=== PATIENT | female | born 1970 | race Caucasian/White ===

== ENCOUNTER 2019-03-13 11:08 | Inpatient (IN) | payer OTHER, SELFPAY ==
[2019-03-11 07:55] VITALS: BMI 36.1
[2019-03-13] VITALS (18 sets, daily range): BP systolic 82–118; BP diastolic 50–76; PULSE 55–96; RESP 12–18; TEMP 35.6–36.4; O2SAT 90–100; BMI 35.5
--- NOTE | 2019-03-13 | DI.RAD.S_ITS ---
PROCEDURE: XR LUMBAR SPINE 2-3V INDICATIONS: L5-S1 TLIF TECHNIQUE: 2 views of the lumbar spine were acquired. COMPARISON: None. FINDINGS: Spot fluoroscopic intraoperative views demonstrating L4-L5 posterior spinal fixation and interbody cage graft. Dictated by: Fausto Haile M.D. on 03/13/2019 at 15:15 Approved by: Fausto Haile M.D. on 03/13/2019 at 15:17
--- NOTE | 2019-03-13 11:34 | PM.PREOP ---
Pre-operative Note Interval Note History & Physical reviewed/Exam performed by Physician: Yes Changes to H&P: No
[2019-03-13] MEDS: LACTATED RINGERS 1,000 ML 42 ML IV ×2 (11:40→13:12)
[2019-03-13] MEDS: CEFAZOLIN 2 GM/100 ML FROZ.PIGGY IV ×2 (12:08→19:03)
--- NOTE | 2019-03-13 12:41 | SUR.OPER ---
Prone on spine table, head in foam head support, padded chest and pelvic supports, gel pad at knees, lower legs supported by pillows; nipples, genitalia and toes free of pressure, arms secured on foam padded arm boards at <90 degrees abduction. Tape over blanket at thigh secured to table.
[2019-03-13] MEDS: BUPIVACAINE 0.25% W/ EPI 30 ML VIAL INJ (12:52)
[2019-03-13] MEDS: BUPIVACAINE LIPOSOME 266 MG/20 ML VIAL INJ (12:53)
[2019-03-13] MEDS: LORazepam 2 MG/ML INJ 0.25 MG IV ×2 (13:15→15:41)
--- NOTE | 2019-03-13 14:53 | PM.OP.1 ---
Operative Date/Time/Diagnoses Date of procedure: 03/13/19 Time of procedure: 12:16 Pre-op diagnosis: 1. L5-S1 spinal stenosis 2. L5-S1 spondylosis with radiculopathy Post-op diagnosis: same Procedure & Clinicians Procedure: 1. L5-S1 Postero-lateral and posterior interbody fusion 2. L5-S1 interbody cage placement. 3. L5-S1 decompressive laminectomy with bilateral facetecomies 4. L5-S1 Posterior non-segmental instrumentation 5. [place] of bone marrow from iliac crest 6. Utilization of microsurgical technique and operating microscope Same procedure as scheduled: Yes Indications: Patient has been having chronic back pain and worsening lumbar radiculopathy. Patient failed multiple conservative management with worsening pain weakness and numbness in her lower extremity. Patient has been having difficulty performing activity of daily living. After discussing risks benefits of treatment options, patient elected proceed with surgery. Surgeon: Katt Hatch Manager Marketing Sales: Alona Pope Click Yes if Unassisted: No Anesthesia Type: General Operative Notes Closure Type: primary Specimen(s): none sent Prosthetic devices, grafts, tissues, transplants, or devices: Globus revolve screws, Rise cage Estimated Blood Loss (mL): 100 Blood products transfused: none Procedure in detail: Patient was seen in the preoperative area. Risks and benefits of the surgery was discussed with the patient. Informed consent was obtained from the patient and placed in the chart. Surgical site was marked. Patient was taken to the operative room. General anesthesia was administered. Prophylactic antibiotic was given to the patient less than 30 min before the incision was made. Patient was placed into a prone position on the Raza table. Patient's back was then prepped and draped in the sterile fashion. Time-out was performed at this time. Using AP and lateral C-arm imaging the interval between L5-S1 was identified and marked on patient's back. A 2 inch incision 2 in from midline was made on the left side first. The fascia was incised in line with skin incision. Globus MARS retractors was placed inside the incision and docked onto the L5 lamina. Using microsurgical technique and operating microscope, a L5 laminectomy and L5-S1 facetectomy was performed using a Kerrison rongeur. The patient was found have severe central and neural foramen stenosis which required total facetectomy and rendered L5-S1 level grossly unstable requiring fusion procedure at the same time. The disc space at L5-S1 was identified. And a total diskectomy was performed at L5-S1 level. The endplates were decorticated using a rasp and shaver. The total diskectomy and decortication was performed at L5-S1 level in order to to accomplish a L5-S1 fusion. The local bone from the laminectomy and facetectomy was saved for local bone grafting. After the total diskectomy and decortication was completed, Bio4 bone graft material was combined with local bone that was harvested earlier. At this time, a separate skin is incision was made over the iliac crest. A Jamshidi needle was inserted into the iliac crest through a separate skin incision. 5 cc of bone marrow aspiration was obtained through the separate skin incision using a Jamshidi needle from the iliac crest. The bone marrow aspiration was combined with local bone and the Bio4 bone grafting material. The bone grafting material was placed into the L5-S1 interbody space along with a expandable cage. The cage was expanded to its maximum height using the torque limiting screwdriver. At this time a mirror image incision was made on the right side. The fascia was incised in line with the skin incision. Globus MARS retractor was inserted and docked onto the L5-S1 posterolateral gutter. Using the power drill, posterior-lateral decortication was performed at L5-S1 level until bleeding cortical bone was identified. The remaining bone grafting material was placed into the L5-S1 posterior lateral gutter he order to accomplish posterolateral fusion at the L5-S1 level. Using the double C-arm technique, pedicle screws were placed into the L4-5 pedicles bilaterally. This was done by placing the Jamshidi needle into the pedicles, then placing the guidewires over the Jamshidi needle, and finally placing the cannulated screws over the guidewires bilaterally. After the pedicle screws were placed, 2 titanium rods was locked into the heads of the pedicle screws using locking caps and torque limiting screwdriver. After all the hardware was placed, and confirmed with AP and lateral C-arm imaging, the wound was then irrigated with sterile normal saline and packed with Ray-Nell gauze for 3 min to accomplish hemostasis. After the gauze was removed the deep fascia was closed with #1 Vicryl suture. The subcutaneous layer was closed with 2-0 Vicryl. The skin was closed with skin lauren. Patient tolerated the procedure well. There were no complications. Complications: none Post-operative Condition: stable Disposition: PACU Plan for aftercare: Admit to inpatient hospital
[2019-03-13] MEDS: HYDROMORPHONE 2 MG INJ 0.5 MG IV ×2 (15:31→15:39)
[2019-03-13] MEDS: BACLOFEN 10 MG TABLET 20 MG PO ×2 (16:55→21:10)
[2019-03-13] MEDS: ACETAMINOPHEN 325 MG TABLET 650 MG PO (16:55)
[2019-03-13] MEDS: GABAPENTIN 600 MG TABLET 1200 MG PO ×2 (16:55→21:09)
[2019-03-13] MEDS: SODIUM CHLORIDE 0.9% 1,000 ML 100 ML IV (16:56)
[2019-03-13] MEDS: OXYCODONE IR 10 MG TABLET PO ×2 (17:09→21:08)
--- NOTE | 2019-03-13 18:30 | PC.NURSE ---
Admission/Evening Shift Note- Patient arrived to room via bed from PACU at 1620. Oriented patient to bed and bed controls, room, lights, phone, menu, and call barth/tv remote. IV fluid started as ordered. PRN pain medications provided for complaints of pain at 12/12. Foot SCDS on as ordered. Dressing to back C/D/I. Admission questions completed by float nurse. Home medications reviewed. Phyasical assessment cpompleted. Safety measures in place. Patient agrees to call for assistance. Bed alarm acitvated. call barth and phone within reach. will continue to monitor.
[2019-03-13] MEDS: HYDROMORPHONE 0.5 MG INJ IV ×2 (19:02→22:34)
[2019-03-13] MEDS: ONDANSETRON 4 MG/2 ML INJ IV (20:13)
[2019-03-13] MEDS: DOCUSATE 100 MG CAPSULE PO (21:09)
[2019-03-13] MEDS: SENNOSIDES 8.6 MG TABLET 17.2 MG PO (21:10)
--- NOTE | 2019-03-13 22:38 | PC.NURSE ---
dressing was peeling off and slightly torn, reinforced with coversite. pt is 1pa to the BSC. bed mobility independent. replaced foot scds with calf scds due to pain in her feet. call light in reach. bed alarm active.
--- NOTE | 2019-03-14 00:06 | PC.NURSE ---
Addendum entered by Michelle Jones R.N. 03/14/19 06:22: States pain down to 4/10 even after being up to the bathroom but still insistent that she get the 10mg of Oxycodone along with Vistaril in order to keep pain managed. IVF stopped as taking in good po intake. Addendum entered by Michelle Jones R.N. 03/14/19 05:21: Initially stating pain is tolerable at 6/10 but then got out of bed to bathroom and now states pain is 7/10 and requesting Dilaudid; medicated as requested. FLACC score is 0. Addendum entered by Michelle Jones R.N. 03/14/19 03:34: Medicated with Oxycodone for complaint of 6/10 pain. After being medicated patient ambulated around room and then into bathroom and back to bed. Tolerated activity well. Addendum entered by Michelle Jones R.N. 03/14/19 02:20: Tearful. States pain increased again and is 8/10; medicated with IV Dilaudid and ice applied. Original Note: Patient is alert and oriented. Breath sounds CTA with RA sat of 88% and 98% while on oxygen at 1L/min per NC. HRR but bradycardic in 50's. Denies nausea. BT hypoactive and patient denies flatus. Moving self in bed and gets up to BSC with 1 assist + walker. Denies dysuria, frequency or urgency. Weakness in right hand and numbness of 3rd thru 5th fingers related to hx cervical surgery; states it is improving. Has numbness/hypersensitivity in bilateral feet related to spinal stenosis for which current surgery was done. States pain in back/feet is 7/10; will be giving Oxycodone q3h and knows she can have IV Dilaudid for breakthrough pain. Wearing bilateral calf SCD's as foot SCD's caused too much pain/discomfort. Needs reinforcement not to bend/twist. Fall risk score is moderate; bed alarm is activated.
[2019-03-14] MEDS: OXYCODONE IR 10 MG TABLET PO ×5 (00:12→13:09)
[2019-03-14] MEDS: hydrOXYzine pamoate 25 MG CAPSULE PO ×3 (00:13→09:47)
[2019-03-14] MEDS: HYDROMORPHONE 0.5 MG INJ IV ×2 (02:11→05:16)
[2019-03-14] MEDS: SODIUM CHLORIDE 0.9% 1,000 ML 100 ML IV (02:59)
[2019-03-14] MEDS: CEFAZOLIN 2 GM/100 ML FROZ.PIGGY IV (03:22)
[2019-03-14 03:59] VITALS: BP 105/71; PULSE 64; RESP 18; TEMP 36.4; O2SAT 93
[2019-03-14 05:24] LABS: Hematocrit 31.3 % (36-46); Hemoglobin 10.6 g/dL (12.0-16.0)
[2019-03-14 07:32] VITALS: BP 115/65; PULSE 69; RESP 16; TEMP 36.4; O2SAT 99
[2019-03-14 08:30] VITALS: PULSE 60; RESP 16; O2SAT 96
--- NOTE | 2019-03-14 09:19 | P.DS_ITS ---
History of Present Illness History of Present Illness Date Patient Seen: 03/14/19 Time Patient Seen: 09:19 Chief complaint: [id number] Narrative: Hospital day 2, postop day 1 following L5-S1 laminectomy, TLIF, cage posterior screw fixation by Dr. Hatch. Patient states she has been stable. Still noting sensory changes to left foot which has been present for several years. Leg symptoms are better at surgery. Taking oxycodone 10 mg for pain. Has been getting Dilaudid IV for breakthrough pain. Patient is desiring to go home today. She does have her helping her. She does have 4 steps at home. Discharge Providers Provider Date of admission: 03/13/19 11:08 Discharge Date: 03/14/19 Consults: 03/13/19 16:17 Consult to Occupational Therapy Evaluate & Treat Comment: Physician Instructions: Evaluate and treat Consult to Physical Therapy Evaluate & Treat Comment: Physician Instructions: Evaluate and Treat Discharge provider: Deshaun Jaimes PA-C Summary Hospital Course Discharge Diagnosis: Status post L5-S1 laminectomy, TLIF, cage, posterior screw fixation Hospital Course: Patient brought to hospital on 03/13/2019 for above noted feng vicente. She remained stable postoperatively. Progressed with physical therapy. Ready for discharge home on postop day 1. Status at Discharge Cognitive/behavioral status at discharge: oriented Functional status at discharge: uses cane/walker Overall status at discharge: patient is progressing back to baseline Time Spent with Patient Time spent: Less than 30 minutes Exam Vital Signs (past 8 hours): - 03/14/19 03:59 03/14/19 07:32 03/14/19 08:30 Temperature 97.6 F 97.5 F L Pulse Rate 64 69 60 Respiratory Rate 18 16 16 Blood Pressure 105/71 115/65 Pulse Oximetry 93 99 96 Fraction of Inspired Oxygen 21 Oxygen Delivery Method Room Air Oxygen Flow Rate 0 Narrative Exam Narrative: Alert, oriented no acute distress sitting in bed. Back. Dressing to lumbar area is dry without drainage or inflammation. Legs. No calf pain or swelling. Pulses symmetrical. Sensory testing to touch notes decreased sensation to left lower leg normal sensation to right. Does have hypersensitivity to left foot with pressure. Good strength on foot dorsiflexion plantar flexion bilateral. Objective Labs Result Diagrams: 03/14/19 05:00 Labs: Laboratory Results - last 24 hr 03/14/19 05:00 Hgb 10.6 L Hct 31.3 L Discharge Plan Discharge Plan Patient Disposition: Home Discharge comment: Discharge home today after cleared by PT. Apply CovRsite dressing to lumbar incision. Given prescription for oxycodone 10 mg and Vistaril 25 mg. Discharge Med Rec/Prescriptions Prescriptions: New acetaminophen 325 mg Tablet 650 mg PO Q6HR PRN (Reason: Pain, Mild (1-3)) Qty: 30 RF: 0 hydroxyzine pamoate 25 mg Capsule 25 mg PO Q4HR PRN (Reason: Nausea And Vomiting) Qty: 30 RF: 0 oxycodone 10 mg Tablet 10 mg PO Q3HR PRN (Reason: Pain, Severe (7-10)) Qty: 40 RF: 0 Continued losartan 50 mg Tablet 50 mg PO BEDTIME RF: 0 gabapentin 600 mg Tablet 1,200 mg PO TID RF: 0 trazodone 50 mg Tablet 50 mg PO BEDTIME PRN (Reason: Sleep) RF: 0 carvedilol 3.125 mg Tablet 3.125 mg PO BID RF: 0 levothyroxine 75 mcg Tablet 75 mcg PO BEDTIME RF: 0 baclofen 10 mg Tablet 20 mg PO TID RF: 0 Excedrin Extra Strength 250-250-65 mg Tablet 1 - 2 tab PO Q4-6H PRN (Reason: Headache) RF: 0 Discontinued naproxen sodium [Aleve] 220 mg Capsule 220 mg PO BID PRN (Reason: Pain) RF: 0 Provider Discharge Instructions Diet: Diet as Tolerated Activity: Ambulate as tolerated. Use walker as needed. Avoid excessive bending or twisting of lumbar spine. No lifting or carrying more than 5-10 lb. No sitting more than 1 hour at a time. Cold/Heat Therapy: Cold pack to lumbar area as needed. Skin/Wound/Dressing Care Report to your healthcare provider any signs of infection, such as:: chills, fever, night sweats, increased pain, unusual drainage and unusual redness Dressing: Keep CovRsite dressing in place until postop visit. Visit Report/Discharge Packet Instructions: DI for Transforaminal Lumbar Interbody Fusion Quality VTE Deep Vein Thrombosis/Pulmonary Embolism Present on Admission: No
[2019-03-14] MEDS: SODIUM CHLORIDE 0.9% FLUSH 10 ML IV (09:34)
[2019-03-14] MEDS: DOCUSATE 100 MG CAPSULE PO (09:40)
[2019-03-14 09:41] VITALS: BP 115/65; PULSE 69
[2019-03-14] MEDS: CARVEDILOL 3.125 MG TABLET PO (09:41)
[2019-03-14] MEDS: GABAPENTIN 600 MG TABLET 1200 MG PO (09:41)
[2019-03-14] MEDS: BACLOFEN 10 MG TABLET 20 MG PO (09:42)
--- NOTE | 2019-03-14 10:10 | PT.IIE ---
Current Diagnoses Spinal stenosis, lumbar region without neurogenic claudication (03/13/19) Other specified postprocedural states (03/13/19) Surgery Performed Operation Date: 03/13/19 12:45 Actual Procedures p L5-S1 TLIF - Katt Hatch MD Surgical History (Last Updated 03/11/19 @ 08:15 by Marissa Harper, RN) History of surgery (Acute ~2003) Hx of discectomy (Acute ~1998) Hx of thyroidectomy (Acute ~2008) Hx of tonsillectomy (Acute) S/P cervical spinal fusion (Acute 11/21/18) Medical History (Last Updated 03/11/19 @ 14:18 by Marissa Harper RN) Arthritis (Acute) Chronic low back pain (Acute) Dandruff (Acute) Depression (Acute) Dizziness (Acute) Easy bruisability (Acute) Headache (Acute) History of HPV infection (Acute) HTN (hypertension) (Acute) Hypothyroid (Acute) LBBB (left bundle branch block) (Acute ~07/2018) Migraines (Acute) Mononeuritis (Acute) Neuropathy (Acute) Sciatica (Acute) Spinal stenosis (Acute) Tachycardia (Acute) Physical Therapy Inpatient Evaluation/Re-Eval M1 PT/OT-IP Prior Functional Status Start: 03/14/19 11:45 Freq: NEEDED Status: Active Protocol: Document 03/14/19 10:10 AB (Rec: 03/14/19 11:56 AB [id number]) Medical Review Prior Functional Status Medical History Reviewed Yes Communication able to make needs known Mobility and Gait pt stated that she is modified independent with all mobilities and ambulation without AD Prior Functional Level (Other details) pt stated that she just had a cervical disc replacement ~ 3 months ago Social History Household Members spouse Living Arrangements RV Number of Floors (Floors) One Floor Number of Stairs To Enter/Railing? 4 steps with bilateral rails Home Environment Standard Height Toilet,Tub/ Shower Home Equipment Front Wheel Walker,Straight Cane,Shower Seat without Backrest,Grab Bars Near Toilet ,Grab Bars In Shower Employment Status Unemployed Additional Social History Comment pt has walking sticks. pt stated that FWW will not fit in the RV but has a SPC or hiking poles/walking sticks that she can use M2 PT-IP Current Condition Start: 03/14/19 11:45 Freq: NEEDED Status: Active Protocol: Document 03/14/19 10:10 AB (Rec: 03/14/19 11:56 AB [id number]) Physical Therapy Current Condition Current Condition Evaluation Date 03/14/19 Treatment Diagnosis L5S1 fusion/lami; difficulty in walking Onset Date 03/13/19 Precautions Lumbar Precautions Log Roll,No Twisting,Limit Bending,Lifting Restriction of 10 lbs,Gait Belt above Incisional Area M3 PT-IP Subjective Start: 03/14/19 11:45 Freq: NEEDED Status: Active Protocol: Document 03/14/19 10:10 AB (Rec: 03/14/19 11:56 AB [email or web address]) Subjective Physical Therapy Visit Type Type Initial Evaluation Visit Start Time 10:10 Visit Stop Time 10:42 Total Visit Minutes 32 Number of MORTGAGE ADVISOR Visits 0 Physical Therapy Visit Comments Patient Comments pt agreeable to do PT Patient Goals to go home Therapy Pain Assessment Pain When Pain Assessed At Rest Pain Present Pain Present Pain Reported Location Back Intensity 7 Scale Used Numeric (1 - 10) Pain Management Techniques Apply Cold,Re-positioning, Timing of Activity with Medications M4 PT-IP Mobility and Gait Start: 03/14/19 11:45 Freq: NEEDED Status: Active Protocol: Document 03/14/19 10:10 AB (Rec: 03/14/19 11:56 AB [email or web address]) PT-Bed Mobility Assessment Supine to Sit Supine to Sit Standby Assistance Sit to Supine Sit to Supine Standby Assistance Scooting Scooting to Edge of Bed Standby Assistance PT-Transfer Assessment Sit to and From Stand Sit to and from Stand Standby Assistance,1 Person Assistance,Use of Upper Extremities Equipment Transfer Assistive Device Gait Belt,Front Wheeled Walker Orthotic/Prosthetic Devices or Brace: No Transfers Transfer Destination Chair Transfer Technique Stand Step Pivot Transfer Ability Level of Assist Standby Assistance,1 Person Assistance,Use of Upper Extremities Gait Assessment Gait Gait Assistance Required: Standby Assistance Distance (Feet) 50 Able to Maintain Weight Bearing Status Yes During Gait Assistive Devices Assistive Device Gait Belt,Front Wheeled Walker Orthotic/Prosthetic Devices or Brace: No Gait Deviations General Gait Pattern Decreased Stride Length, Decreased Feet Clearance, Flexed Trunk Factors Limiting Gait Function Factors Limiting Gait Function Decreased Activity Tolerance, Decreased Sensation,Decreased Strength,Limited Range of Motion,Pain,Poor Balance Comments Gait Comments pt ambulated using FWW 20+50 ft using FWW SBA; ambulated using SPC SBA in room 25 ft Stair Climbing Assessment Evaluation Level of Assist On Stairs Standby Assistance Devices Stair Climbing Assistive Devices Left Railing,Right Railing Technique/Endurance Stair Climbing Direction Ascend and Descend Stair Climbing Technique Step to Step Number of Steps Climbed 3 Query Text: Stair Climbing Set # Repetitions (reps) 2 PT-Balance Assessment Sitting Balance and Reactions Static Sitting Balance Ability Good Dynamic Sitting Balance Ability Good Standing Balance and Reactions Static Standing Balance Ability Fair Dynamic Standing Balance Ability Fair Device Used FWW M5 PT-IP Objective Assessments Start: 03/14/19 11:45 Freq: NEEDED Status: Active Protocol: Document 03/14/19 10:10 AB (Rec: 03/14/19 11:56 AB [id number]) Orientation Orientation/Cognition Level of Alertness Alert Orientation Name Language Function Ability No Deficits Noted Safety Awareness Understands Safety Issues Gross Range of Motion Lower Extremity ROM Assessment Within Functional Limits Strength Lower Extremity Strength Assessment Bilaterally Impaired Comments Strength Comments RLE: 3+/5 LLE: 4-/5 Coordination Assessment Gross Coordination Gross Coordination WNL Sensation Assessment Sensation Gross Sensation Right UE Impaired,Left UE Impaired,Right LE Impaired, Left LE Impaired Light Touch Impaired Proprioception (Position) Impaired Sensation Description Numbness,Tingling Comments Sensation Comments B hands; B feet Muscle Tone Muscle Tone WNL Yes M6 PT-IP Treatment Start: 03/14/19 11:45 Freq: NEEDED Status: Active Protocol: Document 03/14/19 10:10 AB (Rec: 03/14/19 11:56 AB [email or web address]) Physical Therapy Treatment Education Education Provided Precautions,Weight Bearing Status,Post-Op Packet,Safety M7 PT-IP Assessment and Plan Start: 03/14/19 11:45 Freq: NEEDED Status: Active Protocol: Document 03/14/19 10:10 AB (Rec: 03/14/19 11:56 AB [email or web address]) PT Summary Assessment and Plan Potential Rehabilitation Potential Good Status of Condition at Evaluation Stable Summary Impairments Pain,ROM,Strength,Balance, Coordination,Sensation,Tone, Cognition,Bed Mobility, Transfers,Gait,Activity Tolerance Assessment Summary pt requiring SBA with ambulation using FWW/SPC. able to complete steps using bilateral rails SBA. pt c/o increase pain affecting mobility but was ablet o complete tasks without LOB. pt plans to go home and spouse to assist her at home. pt may go home when medically stable. Goals Bed Mobility Goal Independent Transfer Goal Independent,Cane,Front Wheeled Walker Gait Goal Independent,Cane,Front Wheel Walker Gait Distance 150 Other Goals up/down 4 steps with bilateral rails mod I Days to Meet Goals 3 Frequency of Treatment Frequency Of Treatment Twice a Day Treatment Plan Physical Therapy Treatment Plan Bed Mobility Training,Transfer Training,Gait Training, Therapeutic Exercise,Balance Retraining,Post Op Education, Discharge Planning,Hot or Cold Pack,Neuromuscular Re-ed, Coordination Retraining,Manual Therapy Recommendations To Nursing Amount of Assist Needed 1 Person Assist Discharge Recommendations PT Discharge Recommendations Home with Assistance, Outpatient PT
--- NOTE | 2019-03-14 11:31 | CM.DANOTE ---
Discharge Planning/Care Management CM Discharge Assessment Start: 03/14/19 11:29 Freq: Status: Active Protocol: Document 03/14/19 11:30 ITV (Rec: 03/14/19 11:31 ITV [id number]) Discharge Planning Assessment Advance Directives? Yes Advance Directives on File No History Provided By Medical Record Prior Living Arrangements Mobile home Household Members spouse Is patient alert and oriented? Yes Review Status In Process Pre-Anesthesia Assessment Start: 03/11/19 07:55 Freq: Status: Complete Protocol: Document 03/11/19 07:55 CAB (Rec: 03/11/19 08:50 CAB [id number]) Pre-Anesthesia Assessment PAC Comment Admit to [facility] 07/26/18-07/28/18 for SOB, dizziness, new LBBB. DC summary, cardiac testing, consult scanned and put in surgery folder for dos Patient Information Reviewed Via Phone Assessment Assessment Completed With Patient Diagnostic Results BMP/CMP,CBC,Electrolytes Comment Outside labs/EKG scanned to record and placed in surery folder Primary Care Provider Gricelda Medical Clearance Received Yes Seen Specialist in Last 12 Months Yes Specialist Seen Nuclear Licensing Engineer,Oncologist,Other Comment PCP clearance visit 02/14/19 scanned to record and put in surgey folder dos Primary Language Wolof Academic Registrar Required No Height 160.02 cm Weight 92.533 kg Body Mass Index (BMI) 36.1 Hearing Ability Normal Visual Assist Glasses Dentition Type Teeth, Natural Present,Teeth, Missing Barriers to Learning None Other Aids No Hx Anesthesia Reactions No Hx Family Anesthesia Reaction Yes: Mother has PONV, severe Hx Malignant Hyperthermia No Hx Blood Transfusions No Anesthesia Review Requested No alcohol intake former Smoking Status Former smoker Tobacco type cigarettes Smoking packs per day 1 how long ago did patient quit smoking Quit Jun 2018 Smoking pack-years 20 Substance Use Type former substance user, marijuana,other Comment Advised not to smoke 24 hours prior to surgery, CBD oil Pain Present Pain Reported Musculoskeletal Symptoms Abnormal Gait,Back Pain, Difficulty Walking,Joint Pain, Muscle Spasms,Muscle Weakness, Numbness,Radiating Pain into Limb History of Falling (Recent or History of Yes ) Patient is completely paralyzed or No completely immobile Prosthesis or Orthotic Device Cane,Front Wheel Walker, Wheelchair Mental Status Oriented to own ability Comment Walking sticks Is patient on oxygen? No Does patient have DE LEON/SOB Yes: DE LEON Hx Sleep Apnea No Currently Taking a Beta Marita Yes: Carvedilol Can You Climb a Flight of Stairs Without No SOB Hx Chest Pain No Hx SOB Yes: DE LEON Hx Syncope or Dizziness Yes: r/t [facility] admit 07/2018 Anti-Coagulant Therapy No Has a Nuclear Licensing Engineer Cardiology consult @ [facility] 2018 r/t dizziness, sob Cardiac Testing Yes: Echo, Stress test @ [facility] Hx Pacemaker/ICD No Pacemaker Rep Required? No Cardiac Clearance Received Not Applicable Comment Cardiac records scanned to record Diet Type At Home Regular dysphagia No Bladder Pattern Incontinent,Incontinent, Stress Urinary Catheter Present No Hx Urinary Self Catheterization No Comment Urinary incontinence usually during the night, upon first awakening Diabetes No Patient No Lactating No Hx Drug Resistant Organism No Presence of External or Internal Medical Yes: Cervical hardware Devices Have you traveled outside the [facility] in the last 30 days? Marital Status Lives With spouse Prior Living Arrangements Mobile home Number of Floors (Floors) One Floor Support System Parent(s),Spouse Does the Patient Have Assistance After Yes Surgery Patient Discharge Plan Description Return Home Comment Pt advised one night length of stay per surgeon Feels Safe in Current Environment Yes Been Physically Hurt or Threatened By a No Person in Current Environment Do you have thoughts of harming yourself None or others? Are you currently considering suicide? No Do you have a plan to hurt yourself or No Plan others? Do You Have Any Spiritual Beliefs That No May Affect Your HC Choices? Do You Have Any Cultural Practices That No May Affect Your HC Choices? Comment Scientologist Who Can We Speak to About Patient's Care Family, friends Identifying Code for Release of Patient Declines to issue Information Health Care Proxy/Next of Kin Wendy (Mom) Health Care Proxy Emergency Contact Name Wendy (Mom) or Jon ( ) Emergency Contact Phone Number Wendy: [phone] Jon: [phone] Advance Directives? No: Declines further information Power of Communications Media Professor No PAC Instructions Durable medical equipment, Nasal antibiotic,No ETOH/ petroleum product on skin DOS, NPO,Post-op transportation,Pre -surgical wash,Sturdy shoes/ comfortable clothes
--- NOTE | 2019-03-14 11:33 | CM.DANOTE ---
Addendum entered by Lee Ann Longo LPN 03/14/19 11:45: Met with pt as planned, introduced self and role. Pt confirms PT and OT have already worked with her this morning and they have cleared me. I am eager to go home. Pt clarifies that she has been living with her mother in [place] for the last 7 months while recovering from a spinal cord injury. Her PCP: Dr. Humble Cummings is in [place] and she is keeping him for now as he saw me through the whole recovery process. She says she has been prepping for this surgery and is going home now with her Jon to their home in [facility]. Her mother will return to [place] but has been rooming in here in the hospital with her. Pt says she feels very comfortable with the d/c today and is looking forward to getting back to more of her life and going to OUTPT PT when the surgeon oks this. P: home today as soon as JOEY Blackmon completes the paperwork. Original Note: Discharge Planning/Care Management DCP: assessment: case received, EMR reviewed. Discussed in Team Rounds. Pt is a 48 year old female who admitted yesterday for a planned spinal surgery/lumbar region. Surgeon: Dr. Hatch Payer: Ernesto Domínguez [place] Marquita Jaimes stated in Rounds that pt was ok to d/c today pending PT clearance and the d/c order is in. PT and OT have been ordered but will see pt for first time today. Currently, no note is available for either. Pt identifies her pre-op plan as home with spouse Jon and her parents to assist. Will check in now with her and follow for d/c issues/options prn. CM Discharge Assessment Start: 03/14/19 11:29 Freq: Status: Active Protocol: Document 03/14/19 11:30 ITV (Rec: 03/14/19 11:31 ITV [id number]) Discharge Planning Assessment Advance Directives? Yes Advance Directives on File No History Provided By Medical Record Prior Living Arrangements Mobile home Household Members spouse Is patient alert and oriented? Yes Review Status In Process Pre-Anesthesia Assessment Start: 03/11/19 07:55 Freq: Status: Complete Protocol: Document 03/11/19 07:55 CAB (Rec: 03/11/19 08:50 CAB [id number]) Pre-Anesthesia Assessment PAC Comment Admit to [facility] 07/26/18-07/28/18 for SOB, dizziness, new LBBB. DC summary, cardiac testing, consult scanned and put in surgery folder for dos Patient Information Reviewed Via Phone Assessment Assessment Completed With Patient Diagnostic Results BMP/CMP,CBC,Electrolytes Comment Outside labs/EKG scanned to record and placed in surery folder Primary Care Provider Gricelda Medical Clearance Received Yes Seen Specialist in Last 12 Months Yes Specialist Seen Intellectual Property Counsel,Oncologist,Other Comment PCP clearance visit 02/14/19 scanned to record and put in surgey folder dos Primary Language Yoruba Director Of Teacher Education Required No Height 160.02 cm Weight 92.533 kg Body Mass Index (BMI) 36.1 Hearing Ability Normal Visual Assist Glasses Dentition Type Teeth, Natural Present,Teeth, Missing Barriers to Learning None Other Aids No Hx Anesthesia Reactions No Hx Family Anesthesia Reaction Yes: Mother has PONV, severe Hx Malignant Hyperthermia No Hx Blood Transfusions No Anesthesia Review Requested No alcohol intake former Smoking Status Former smoker Tobacco type cigarettes Smoking packs per day 1 how long ago did patient quit smoking Quit Jun 2018 Smoking pack-years 20 Substance Use Type former substance user, marijuana,other Comment Advised not to smoke 24 hours prior to surgery, CBD oil Pain Present Pain Reported Musculoskeletal Symptoms Abnormal Gait,Back Pain, Difficulty Walking,Joint Pain, Muscle Spasms,Muscle Weakness, Numbness,Radiating Pain into Limb History of Falling (Recent or History of Yes ) Patient is completely paralyzed or No completely immobile Prosthesis or Orthotic Device Cane,Front Wheel Walker, Wheelchair Mental Status Oriented to own ability Comment Walking sticks Is patient on oxygen? No Does patient have DE LEON/SOB Yes: DE LEON Hx Sleep Apnea No Currently Taking a Beta Marita Yes: Carvedilol Can You Climb a Flight of Stairs Without No SOB Hx Chest Pain No Hx SOB Yes: DE LEON Hx Syncope or Dizziness Yes: r/t [facility] admit 07/2018 Anti-Coagulant Therapy No Has a Intellectual Property Counsel Cardiology consult @ [facility] 2018 r/t dizziness, sob Cardiac Testing Yes: Echo, Stress test @ [facility] Hx Pacemaker/ICD No Pacemaker Rep Required? No Cardiac Clearance Received Not Applicable Comment Cardiac records scanned to record Diet Type At Home Regular dysphagia No Bladder Pattern Incontinent,Incontinent, Stress Urinary Catheter Present No Hx Urinary Self Catheterization No Comment Urinary incontinence usually during the night, upon first awakening Diabetes No Patient No Lactating No Hx Drug Resistant Organism No Presence of External or Internal Medical Yes: Cervical hardware Devices Have you traveled outside the [facility] States in the last 30 days? Marital Status Lives With spouse Prior Living Arrangements Mobile home Number of Floors (Floors) One Floor Support System Parent(s),Spouse Does the Patient Have Assistance After Yes Surgery Patient Discharge Plan Description Return Home Comment Pt advised one night length of stay per surgeon Feels Safe in Current Environment Yes Been Physically Hurt or Threatened By a No Person in Current Environment Do you have thoughts of harming yourself None or others? Are you currently considering suicide? No Do you have a plan to hurt yourself or No Plan others? Do You Have Any Spiritual Beliefs That No May Affect Your HC Choices? Do You Have Any Cultural Practices That No May Affect Your HC Choices? Comment Vitaliy Who Can We Speak to About Patient's Care Family, friends Identifying Code for Release of Patient Declines to issue Information Health Care Proxy/Next of Kin Wendy (Mom) Health Care Proxy Emergency Contact Name Wendy (Mom) or Jon ( ) Emergency Contact Phone Number Wendy: [phone] Jon: [phone] Advance Directives? No: Declines further information Power of Aviation Safety Inspector No PAC Instructions Durable medical equipment, Nasal antibiotic,No ETOH/ petroleum product on skin DOS, NPO,Post-op transportation,Pre -surgical wash,Sturdy shoes/ comfortable clothes
--- NOTE | 2019-03-14 12:59 | OT.IP.TRT ---
Current Diagnoses Spinal stenosis, lumbar region without neurogenic claudication (03/13/19) Other specified postprocedural states (03/13/19) Surgery Performed Operation Date: 03/13/19 12:45 Actual Procedures p L5-S1 TLIF - Katt Hatch MD Occupational Therapy Treatment Note M3 OT- IP Subjective and Pain Start: 03/14/19 12:56 Freq: Status: Active Protocol: Document 03/14/19 12:57 [facility]3] (Rec: 03/14/19 12:59 [facility]3] [id number]) OT- Subjective Occupational Therapy Visit Type Type Patient Refusal Notes Approached pt for OT eval , pt states does not want any OT at this time as just finished PT and just focused on going home. Pt states to assist for all needs at home. Spoke briefly of OT needs and pt had good awareness of needs and body mechanics for back precautions. Therefore discharge OT eval order as pt refusing OT eval at this time.
== END 2019-03-14 14:13 | disposition home or self-care (01) | DRG 455 ==
PROVIDERS: Admitting Provider Orthopaedic Surgery Orthopaedic Surgery of the Spine; Visit Provider Orthopaedic Surgery Orthopaedic Surgery of the Spine
PROC: 0SG30AJ Fusion of Lumbosacral Joint with Interbody Fusion Device, Posterior Approach, Anterior Column, Open Approach (ICD-10-PCS; principal; 2019-03-13 12:45)
DX: M48.07 Spinal stenosis, lumbosacral region (principal); M47.27 Other spondylosis with radiculopathy, lumbosacral region; M48.061 Spinal stenosis, lumbar region without neurogenic claudication; I44.7 Left bundle-branch block, unspecified; E03.9 Hypothyroidism, unspecified; I10 Essential (primary) hypertension; E66.9 Obesity, unspecified; K21.9 Gastro-esophageal reflux disease without esophagitis; Z68.35 Body mass index [BMI] 35.0-35.9, adult
CPT/HCPCS: 36415; 72100; 76000; 85014; 85018; 94760; 94762; 97161; C1776; C9290; J0330; J0690; J1100; J1170; J2060; J2405; J2704; J3010

== ENCOUNTER → 2020-08-22 10:01 | Outpatient (CLI) | payer OTHER, SELFPAY ==
[2019-03-13 18:19] VITALS: BMI 35.5
[2020-08-22 14:42] LABS: COVID19 -Nasal RAPID Negative (Negative)
== END ==
PROVIDERS: Visit Provider Physician Assistant
DX: Z20.822 Contact with and (suspected) exposure to COVID-19 (principal)
CPT/HCPCS: 87635

== ENCOUNTER 2020-08-24 06:20 | Inpatient (IN) | payer OTHER, SELFPAY ==
[2019-03-13 18:19] VITALS: BMI 35.5
[2020-08-24] VITALS (18 sets, daily range): BP systolic 77–114; BP diastolic 38–101; PULSE 84–112; RESP 11–18; TEMP 36.1–37.1; O2SAT 92–99; BMI 36.8
--- NOTE | 2020-08-24 | DI.RAD.S_ITS ---
PROCEDURE: XR LUMBAR SPINE 2-3V INDICATIONS: L3-4 TLIF TECHNIQUE: 2 operative views of the lumbar spine were acquired. COMPARISON: [facility], CR, XR LUMBAR SPINE 2-3V, 03/13/2019, 12:39. FINDINGS: Operative imaging demonstrates extension of multilevel lumbar fusion, previously involving L5-S1 and now extended to involve L4 through S1, with bilateral rafael and pedicle screw fixation and interbody cage material placement. IMPRESSION: Operative imaging utilized for lumbar fusion surgery. No radiographic evidence of complications. Fusion has been extended to involve 1 higher level. Dictated by: Sincere Willett M.D. on 08/24/2020 at 12:38 Approved by: Sincere Willett M.D. on 08/24/2020 at 12:40
[2020-08-24] MEDS: ACETAMINOPHEN 325 MG TABLET 975 MG PO (07:37)
--- NOTE | 2020-08-24 07:40 | PM.PREOP ---
Pre-operative Note COVID-19 COVID-19 status: Negative Result date/Date tested (Pos, Neg/Pending): 08/22/20 Interval Note History & Physical reviewed/Exam performed by Physician: Yes Changes to H&P: No
--- NOTE | 2020-08-24 07:41 | SUR.PREOP ---
Dr Hatch and Dr Iniguez notified of Potassium 3.0
[2020-08-24] MEDS: LACTATED RINGERS 1,000 ML 42 ML IV ×3 (07:48→13:31)
[2020-08-24] MEDS: CEFAZOLIN 2 GM/100 ML FROZ.PIGGY IV ×3 (07:51→19:53)
[2020-08-24] MEDS: BUPIVACAINE LIPOSOME 266 MG/20 ML VIAL INJ (09:22)
[2020-08-24] MEDS: BUPIVACAINE 0.25% W/ EPI (PF) 10 ML VIAL 20 ML INJ (09:24)
--- NOTE | 2020-08-24 12:36 | PM.OP.1 ---
Operative Date/Time/Diagnoses Date of procedure: 08/22/20 Time of procedure: 08:09 Pre-op diagnosis: 1. L4-5 spondylolisthesis 2. L4-5, L5-S1 spinal stenosis 3. Hx of L5-S1 TLIF Post-op diagnosis: same Procedure & Clinicians Procedure: 1. L4-5 posterolateral and posterior interbody fusion 2. L4-5 posterior interbody cage placement 3. L5-S1 posterior non-segmental instrumentation removal 4. L5-S1 revision laminectomy with exploration of fusion 5. L4-5, L5-S1 posterior segmental instrumentation with pedicle screw placement 6. L5-S1 posterolatearl fusion 7. [place] of bone marrow from iliac crest through a separate incision 8. Utilization of microsurgical technique and operating microscope Same procedure as scheduled: Yes Indications: Patient has been having chronic back pain and worsening lumbar radiculopathy. Patient has been doing well until the last 6 months with worsening left lower extremity pain as well as back pain. Patient failed multiple conservative management with worsening pain weakness and numbness in her lower extremity. Patient has been having difficulty performing activity of daily living. After discussing risks benefits of treatment options, patient elected proceed with surgery. Surgeon: Katt Hatch Lithographic Proofer Apprentice: Jose Cruz Click Yes if Unassisted: No Anesthesia Type: General Operative Notes Closure Type: primary Specimen(s): none sent Prosthetic devices, grafts, tissues, transplants, or devices: Globus revolve screws, Rise cage Applied: catheter Estimated Blood Loss (mL): 400 Blood products transfused: none Procedure in detail: Patient was seen in the preoperative area. Risks and benefits of the surgery was discussed with the patient. Informed consent was obtained from the patient and placed in the chart. Surgical site was marked. Patient was taken to the operative room. General anesthesia was administered. Prophylactic antibiotic was given to the patient less than 30 min before the incision was made. Patient was placed into a prone position on the Raza table. Patient's back was then prepped and draped in the sterile fashion. Time-out was performed at this time. Using patient's previous scar incision was made over the L4-5 L5-S1 interval on the Left side. Fascia was incised in line with skin incision. Patient's previously placed hardware over the L5-S1 level was identified by dissecting down to the level the hardware using a Bovie and a Jimenez. The locking caps which was removed using globus screwdriver. The locking rafael was then removed from the [place] of the pedicle screws using a Bladimir. The pedicle screws were then removed using the screwdriver. The screws were found to have good purchase. The Globus and MARS retractors was then placed into the wound and docked onto the L4 lamina using C-arm guidance. Using microsurgical technique and operating microscope a laminectomy facetectomy was performed by removing the L4 lamina and the L4-5 facet. Patient was found have severe central and neuroforaminal stenosis due to enlarged facets as well as thickened/hypertrophy ligamentum flavum. Total facetectomy was performed in order to fully decompress the neural foramen and central canal rendered the L4-5 level further unstable and requiring fusion procedure at the same time. The disc space at L4-5 level was identified next. And a total diskectomy was performed at L4-5 level. The endplates were decorticated using a rasp and shaver. The total diskectomy and decortication was performed at L4-5 level in order to to accomplish a L4-5 fusion. The local bone from the laminectomy and facetectomy was saved for local bone grafting. After the total diskectomy and decortication was completed, Globus Trifecta bone graft material was combined with local bone that was harvested earlier. At this time, a separate skin is incision was made over the iliac crest. A Jamshidi needle was inserted into the iliac crest through a separate skin incision. 5 cc of bone marrow aspiration was obtained through the separate skin incision using a Jamshidi needle from the iliac crest. The bone marrow aspiration was combined with local bone and the Trifecta bone grafting material. The bone grafting material was placed into the L4-5 interbody space along with a expandable cage. The cage was expanded to its maximum height using the torque limiting screwdriver. At this time a mirror image incision was made on the Right side. The fascia was incised in line with the skin incision. Patient's previously placed hardware on the right side was then removed in the same fashion as it was on the left side. The hardware was also found to have good purchase. The fusion mass on the right side was exposed by performing a right-sided hemilaminectomy at L5-S1 level. The hemilaminectomy was performed using the Kerrison rongeur to undercut the lamina as well removing additional epidural scar tissue for purpose of decompressing the epidural space. The fusion mass was explored and was found have visible motion indicating pseudoarthrosis. Globus MARS retractor was inserted and docked onto the L4-5 L5-S1 posterolateral gutter. Using the power drill, posterior-lateral decortication was performed at L4-5, L5-S1 level until bleeding cortical bone was identified. The remaining bone grafting material was placed into the L5-S1 posterior lateral gutter he order to accomplish posterolateral fusion at the L4-5, L5-S1 level. Using the double C-arm technique, pedicle screws were placed into the L4, L5, S1 pedicles bilaterally. This was done by placing the Jamshidi needle into the pedicles, then placing the guidewires over the Jamshidi needle, and finally placing the cannulated screws over the guidewires bilaterally. After the pedicle screws were placed, 2 titanium rods was locked into the heads of the pedicle screws using locking caps and torque limiting screwdriver. After all the hardware was placed, and confirmed with AP and lateral C-arm imaging, the wound was then irrigated with sterile normal saline and packed with Ray-Nell gauze for 3 min to accomplish hemostasis. After the gauze was removed the deep fascia was closed with #1 Vicryl suture. The subcutaneous layer was closed with 2-0 Vicryl. The skin was closed with skin lauren. Patient tolerated the procedure well. There were no complications. Complications: none Post-operative Condition: stable Disposition: PACU Plan for aftercare: Admit to inpatient hospital
--- NOTE | 2020-08-24 13:24 | SUR.PHASEI ---
Report to Gwendolyn COOK
[2020-08-24] MEDS: hydrOXYzine 50 MG/ML INJ 25 MG IM (13:31)
[2020-08-24] MEDS: SODIUM CHLORIDE 0.9% 1,000 ML 100 ML IV ×2 (14:19→23:43)
--- NOTE | 2020-08-24 14:21 | PC.NURSE ---
Day shift: Pt on AC unit from PACU at approx 1345. Oriented to room and call light. Bed alaarm is on and she is high fall risk for now. She is A&Ox4. BP low 101/64 and the HOB lowered. IV fluids infusing per MAR. Will continue to monitor. Call light in reach. Pt's Mother in room for support.
[2020-08-24] MEDS: OXYCODONE IR 10 MG TABLET PO ×3 (15:28→23:34)
[2020-08-24] MEDS: GABAPENTIN 600 MG TABLET 1200 MG PO ×2 (15:29→21:06)
--- NOTE | 2020-08-24 16:20 | PT.IIE ---
Current Diagnoses Benign lipomatous neoplasm of other sites (08/24/20) Spinal stenosis, lumbar region with neurogenic claudication (08/24/20) Arthrodesis status (08/24/20) Surgery Performed Operation Date: 08/24/20 07:45 Actual Procedures p L4-5 TLIF,L5-S1 HWR, L4-S1 PSF with instrumentation - Katt Hatch MD Surgical History (Last Updated 07/01/20 @ 16:30 by Polly Mercado RN) H/O lumbar discectomy History of surgery (~2003) History of tubal ligation Hx of discectomy (~1998) Hx of thyroidectomy (~2008) Hx of tonsillectomy S/P cervical spinal fusion (11/21/18) Medical History (Last Updated 08/24/20 @ 11:26 by Marissa Iniugez MD) Arthritis Chronic low back pain Dandruff Depression Difficult airway for intubation Dizziness Easy bruisability Former smoker Ganglion cyst Headache History of HPV infection HTN (hypertension) Hypothyroid LBBB (left bundle branch block) (~07/2018) Migraines Mononeuritis Neuropathy Sciatica Spinal stenosis Tachycardia Physical Therapy Inpatient Evaluation/Re-Eval M1 PT/OT-IP Prior Functional Status Start: 08/24/20 15:46 Freq: NEEDED Status: Active Protocol: Document 08/24/20 16:20 AW (Rec: 08/24/20 16:40 AW [id number]) Medical Review Prior Functional Status Medical History Reviewed Yes Communication Able to make needs known Mobility and Gait Pt states she is modified independent with use of SPC Activities of Daily Living and IADL's Independent with ADL's with exception of occasional assist provided by spouse to don shoes and socks. Prior Functional Level (Other details) Pt had lumbar surgery in March 2019 and ACDF earlier the same year. Social History Household Members spouse Living Arrangements Mobile home Number of Floors (Floors) One Floor Number of Stairs To Enter/Railing? 3 CINDA with narrow bilateral rails Home Environment Standard Height Toilet,Tub/ Shower Home Equipment Front Wheel Walker,Straight Cane,Recycling Program Manager Additional Social History Comment Pt lives in an RV with her spouse but she will discharge to her mother's house which is described in this note. Pt's mother will be with her to provide all assist for ~2 weeks. M2 PT-IP Current Condition Start: 08/24/20 15:46 Freq: NEEDED Status: Active Protocol: Document 08/24/20 16:20 AW (Rec: 08/24/20 16:40 AW [id number]) Physical Therapy Current Condition Current Condition Evaluation Date 08/24/20 Treatment Diagnosis L4-5 TLIF, L4-S1 PSF; difficulty in walking Onset Date 08/24/20 Precautions Lumbar Precautions Log Roll,No Twisting,Limit Bending,Lifting Restriction of 10 lbs,Gait Belt above Incisional Area M3 PT-IP Subjective Start: 08/24/20 15:46 Freq: NEEDED Status: Active Protocol: Document 08/24/20 16:20 AW (Rec: 08/24/20 16:40 AW [id number]) Subjective Physical Therapy Visit Type Type Initial Evaluation Visit Start Time 15:58 Visit Stop Time 16:20 Total Visit Minutes 22 Notes Pt's mother was present throughout evaluation. Her mother assisted after her last surgery. Number of MINE BOSS Visits 0 Physical Therapy Visit Comments Patient Comments Pt is willing to participate with PT Therapy Pain Assessment Pain When Pain Assessed During Mobility Pain Present Pain Present Pain Reported Location Back Intensity 6 Scale Used 6/10 at rest and stable during mobility Pain Management Techniques Apply Cold,Re-positioning, Timing of Activity with Medications M4 PT-IP Mobility and Gait Start: 08/24/20 15:46 Freq: NEEDED Status: Active Protocol: Document 08/24/20 16:20 AW (Rec: 08/24/20 16:40 AW [id number]) PT-Bed Mobility Assessment Rolling Type of Rolling Log Rolling,Roll to Right Level of Assist Standby Assistance Supine to Sit Supine to Sit Contact Guard Assistance Scooting Scooting to Edge of Bed Standby Assistance PT-Transfer Assessment Sit to and From Stand Sit to and from Stand Contact Guard Assistance,1 Person Assistance,Use of Upper Extremities Equipment Transfer Assistive Device Gait Belt,Front Wheeled Walker Orthotic/Prosthetic Devices or Brace: No Transfers Transfer Destination Chair Transfer Technique ambulated with FWW Transfer Ability Level of Assist Standby Assistance,1 Person Assistance,Use of Upper Extremities Comments Mobility Comments Pt was lying in the bed as PT arrived. BP 101/60 in supine. Pt completed log roll to her right side SBA and then needed CGA for SL to sit transition. She complained of sudden onset lightheadedness in sitting. BP 120/82. Symptoms dissipated within one minute. Pt stood from the bedside CGA and used FWW to ambulate around the foot of the bed to the chair CGA. She transferred to the chair and positioned herself upright with pillow and ice pack provided for her back. Pt demonstrated good attention to precautions throughout assessment. PT left pt with call light and all needs in reach. Her mother remained in the room. Gait Assessment Gait Gait Assistance Required: Contact Guard Assist Distance (Feet) 20 Able to Maintain Weight Bearing Status Yes During Gait Assistive Devices Assistive Device Gait Belt,Front Wheeled Walker Orthotic/Prosthetic Devices or Brace: No Gait Deviations General Gait Pattern Antalgic,Decreased Stride Length,Decreased Feet Clearance,Flexed Trunk Factors Limiting Gait Function Factors Limiting Gait Function Decreased Activity Tolerance, Decreased Sensation,Decreased Strength,Limited Range of Motion,Pain Comments Gait Comments See mobility comments for details. Stair Climbing Assessment Comments Stair Climbing Comments Not assessed. PT-Balance Assessment Sitting Balance and Reactions Static Sitting Balance Ability Good Dynamic Sitting Balance Ability Good Standing Balance and Reactions Static Standing Balance Ability Good Dynamic Standing Balance Ability Fair Device Used FWW M5 PT-IP Objective Assessments Start: 08/24/20 15:46 Freq: NEEDED Status: Active Protocol: Document 08/24/20 16:20 AW (Rec: 08/24/20 16:40 AW [id number]) Orientation Orientation/Cognition Level of Alertness Alert Orientation Name,Day of Week,Place, Situation Language Function Ability No Deficits Noted Safety Awareness Understands Safety Issues Gross Range of Motion Lower Extremity ROM Assessment Within Functional Limits Strength Lower Extremity Strength Assessment Bilaterally Impaired Hip 4-/5 Knee 4/5 Sensation Assessment Sensation Gross Sensation Right LE Impaired,Left LE Impaired Light Touch Impaired Proprioception (Position) Impaired Sensation Description Numbness Comments Sensation Comments Chronic numbness reported in bilateral feet Muscle Tone Muscle Tone WNL Yes M6 PT-IP Treatment Start: 08/24/20 15:46 Freq: NEEDED Status: Active Protocol: Document 08/24/20 16:20 AW (Rec: 08/24/20 16:40 AW [id number]) Physical Therapy Treatment Education Education Provided Precautions,Weight Bearing Status,Post-Op Packet,Safety Other Treatments Other Treatment Performed Educated pt on the role of PT, plan of care, post op precautions, and safe use of FWW. M7 PT-IP Assessment and Plan Start: 08/24/20 15:46 Freq: NEEDED Status: Active Protocol: Document 08/24/20 16:20 AW (Rec: 08/24/20 16:40 AW [id number]) PT Summary Assessment and Plan Potential Rehabilitation Potential Good Status of Condition at Evaluation Evolving Summary Impairments Pain,ROM,Strength,Balance, Sensation,Bed Mobility, Transfers,Gait,Activity Tolerance Assessment Summary Deb is a 49 yo woman seen for PT evaluation on POD0 following L4-5 TLIF, L4-S1 PSF . She is modified independent for mobility using SPC at baseline. On evaluation, she required SBA to [facility] for mobility with FWW. Pt plans to discharge to her mother's home with assist. PT anticipates she will be safe to discharge after she clears stairs and is medically stable . Goals Bed Mobility Goal Independent Transfer Goal Independent,Front Wheeled Walker Gait Goal Independent,Front Wheel Walker Gait Distance 150 Other Goals - up/down 3 steps with narrow bilateral rails mod IND - improve transfers and ambulation to SBA with SPC Days to Meet Goals 2 Frequency of Treatment Frequency Of Treatment Twice a Day Treatment Plan Physical Therapy Treatment Plan Bed Mobility Training,Transfer Training,Gait Training, Therapeutic Exercise,Balance Retraining,Post Op Education, Discharge Planning,Hot or Cold Pack,Neuromuscular Re-ed Other Recommendations and Next Treatment review precautions; stairs; Focus Precautions Lumbar Precautions Log Roll,No Twisting,Limit Bending,Lifting Restriction of 10 lbs,Gait Belt above Incisional Area Recommendations To Nursing Amount of Assist Needed 1 Person Assist Discharge Recommendations PT Discharge Recommendations Home with Assistance, Outpatient PT Transportation Needs at Discharge Private Vehicle
[2020-08-24] MEDS: DOCUSATE 100 MG CAPSULE PO (21:06)
[2020-08-24] MEDS: OXYCODONE ER 10 MG TAB PO (21:07)
[2020-08-24] MEDS: SENNOSIDES 8.6 MG TABLET 17.2 MG PO (21:08)
--- NOTE | 2020-08-24 22:07 | PC.NURSE ---
Pt S/P back surgery. Lungs clear, SpO2 97% RA Dsg to back CDI Pt c/o 02/12 pain. tearful early in shift. Med twice this evening w/oxycodone as per orders. IVF infusing into the Right hand as per orders. Moralez cath patent harjinder urine. Mother in room. Call light w/in reach, bed alarm on for pt safety. Continue w/plan of care.
[2020-08-25] VITALS: BP 96/55; PULSE 96; RESP 16; TEMP 36.9; O2SAT 94
[2020-08-25] MEDS: ACETAMINOPHEN 325 MG TABLET 650 MG PO (01:50)
[2020-08-25] MEDS: hydrOXYzine pamoate 25 MG CAPSULE PO (01:50)
[2020-08-25] MEDS: OXYCODONE IR 10 MG TABLET PO ×3 (03:09→09:25)
--- NOTE | 2020-08-25 03:27 | PC.NURSE ---
2346: patient is alert and oriented. Breath sounds diminished at bases with RA sat of 96%. HRR. BP low at 96/55 which is consistent with previous readings. Denies nausea. BT hypoactive; abdomen is soft and patient denies flatus as yet. Indwelling catheter is patent; urine is dark ambe. Is able to turn herself in bed. Dressing to back is CDI. Evening RN reports patient out of bed with 1 assist and walker; gait not assessed at this time. Chronic numbness in bilateral feet and palms of both hands unchanged. Wearing bilateral foot SCD's. Complained of 7/10 pain and was medicated with Oxycodone and ice pack applied. At 0150 pain back to 6/10 and was medicated with Tylenol and Vistaril and now at 0309 patient states pain up to 8/10 and was medicated again with Oxycodone; refused ice pack. Fall risk score is high and bed alarm is activated.
[2020-08-25] MEDS: CEFAZOLIN 2 GM/100 ML FROZ.PIGGY IV (03:53)
[2020-08-25 05:00] VITALS: BP 97/63; PULSE 95; RESP 16; TEMP 36.6; O2SAT 95
[2020-08-25] MEDS: MAG HYDROX/ALUM/SIMETH 30 ML UDC PO (06:09)
[2020-08-25 06:39] LABS: Hematocrit 28.9 % (36-46); Hemoglobin 9.9 g/dL (12.0-16.0)
[2020-08-25] MEDS: GABAPENTIN 600 MG TABLET 1200 MG PO (06:56)
--- NOTE | 2020-08-25 08:12 | P.DS_ITS ---
History of Present Illness History of Present Illness Date Patient Seen: 08/25/20 Time Patient Seen: 08:12 Chief complaint: INPT Narrative: Patient's pain is 6/10. Denies fever or chills. No nausea or vomiting. Patient has been ambulating in the room. Otherwise without complaints. Discharge Providers Provider Date of admission: 08/24/20 06:20 Discharge Date: 08/25/20 Primary care physician: Brad Carolina DO Consults: 08/24/20 14:12 Consult to Occupational Therapy Evaluate & Treat Comment: Physician Instructions: Evaluate and treat Consult to Physical Therapy Evaluate & Treat Comment: Physician Instructions: Evaluate and Treat Discharge provider: [place] PA-C Summary Hospital Course Discharge Diagnosis: 1. L4-5 spondylolisthesis 2. L4-5, L5-S1 spinal stenosis 3. Hx of L5-S1 TLIF Hospital Course: 1. L4-5 posterolateral and posterior interbody fusion 2. L4-5 posterior interbody cage placement 3. L5-S1 posterior non-segmental instrumentation removal 4. L5-S1 revision laminectomy with exploration of fusion 5. L4-5, L5-S1 posterior segmental instrumentation with pedicle screw placement 6. L5-S1 posterolatearl fusion 7. [place] of bone marrow from iliac crest through a separate incision 8. Utilization of microsurgical technique and operating microscope Patient admitted to the hospital for the above-mentioned procedure. Patient consented to the same. Patient taken to the operating room yesterday underwent above-mentioned procedure. Patient back in her room recovering well as in stable condition. Patient has assistance at home and will be discharged in stable condition today. Status at Discharge Cognitive/behavioral status at discharge: at baseline, oriented Functional status at discharge: uses cane/walker Overall status at discharge: patient is progressing back to baseline Time Spent with Patient Time spent: Less than 30 minutes Exam Vital Signs (past 8 hours): - 08/25/20 05:00 Temperature 97.8 F Pulse Rate 95 H Respiratory Rate 16 Blood Pressure 97/63 Pulse Oximetry 95 Oxygen Delivery Method Room Air Oxygen Flow Rate 0 Narrative Exam Narrative: 49-year-old female resting comfortably in bed in no apparent distress. Dressing is clean, dry and intact. Motor functions intact bilateral lower extremities. Sensation grossly intact to light touch bilateral lower extremities. Objective Labs Result Diagrams: 08/25/20 06:07 Labs: Laboratory Results - last 24 hr 08/25/20 06:07 Hgb 9.9 L Hct 28.9 L PFSH Medical History Arthritis Chronic low back pain Dandruff Depression Difficult airway for intubation Dizziness Easy bruisability Former smoker Ganglion cyst Headache History of HPV infection HTN (hypertension) Hypothyroid LBBB (left bundle branch block) (~07/2018) Migraines Mononeuritis Neuropathy Sciatica Spinal stenosis Tachycardia Surgical History H/O lumbar discectomy History of surgery (~2003) History of tubal ligation Hx of discectomy (~1998) Hx of thyroidectomy (~2008) Hx of tonsillectomy S/P cervical spinal fusion (11/21/18) Social History household members: spouse Smoking Status: Former smoker alcohol intake: former Discharge Assessment & Plan Assessment and Plan Assessment: Patient progressing as expected. Plan of Treatment: Discharge home today in stable condition. Discharge Plan Discharge Plan Patient Disposition: Home Discharge orders & Medications Prescriptions: New docusate sodium [DOK] 100 mg Capsule 100 mg PO BID Qty: 20 RF: 0 oxycodone 10 mg Tablet 10 mg PO Q3HR PRN (Reason: Pain, Severe (7-10)) Qty: 60 RF: 0 Continued sumatriptan succinate 50 mg Tablet 50 mg PO Q2-4H PRN (Reason: Migraine Headache) RF: 0 methocarbamol 750 mg Tablet 750 mg PO BID RF: 0 rosuvastatin 10 mg Tablet 10 mg PO RF: 0 potassium chloride 20 mEq Tablet Extended Release 20 meq PO DAILY RF: 0 cannabidiol 100 mg/mL Solution 500 mg PO BID RF: 0 calcium 500 mg Tablet 500 mg PO DAILY RF: 0 fluticasone propionate 50 mcg/actuation [place],Suspension 1 spray INTRANASAL DAILY RF: 0 vitamin B complex Capsule 1 cap PO DAILY RF: 0 melatonin 2.5 mg Tablet,Chewable 2.5 mg PO BEDTIME PRN (Reason: Insomnia) RF: 0 losartan 50 mg Tablet 50 mg PO BEDTIME RF: 0 gabapentin 600 mg Tablet 1,200 mg PO TID RF: 0 trazodone 50 mg Tablet 50 mg PO BEDTIME PRN (Reason: Sleep) RF: 0 carvedilol 3.125 mg Tablet 3.125 mg PO BID RF: 0 levothyroxine 75 mcg Tablet 75 mcg PO BEDTIME RF: 0 Excedrin Extra Strength 250-250-65 mg Tablet 1 - 2 tab PO Q4-6H PRN (Reason: Headache) RF: 0 acetaminophen 325 mg Tablet 650 mg PO Q6HR PRN (Reason: Pain, Mild (1-3)) Qty: 30 RF: 0 oxycodone 10 mg Tablet 10 mg PO Q3HR PRN (Reason: Pain, Severe (7-10)) Qty: 40 RF: 0 Follow up/Referrals: Brad Carolina DO [Primary Care Provider] - Katt Hatch MD [Physician] - (2 weeks) Diet/Activity/Treatments Diet: Diet as Tolerated Activity: Limit bending, lifting, twisting Skin/Wound/Dressing Care Report to your healthcare provider any signs of infection, such as:: chills, fever, night sweats, increased pain, unusual drainage and unusual redness Dressing: keep clean and dry Visit Report/Discharge Packet Instructions: DI for Heart Failure, DI for Prescription Opioid Use, DI for Transforaminal Lumbar Interbody Fusion Stand Alone Forms: Surgery Discharge Discharge Data Primary Care Provider: Brad Carolina Quality VTE Deep Vein Thrombosis/Pulmonary Embolism Present on Admission: No MIPS - Admit Advanced Care Plan / Current Medications Measures: #47 ? Advanced Care Plan Clinician documentation instruction: document at admission. [] I confirmed that the patient's Advance Care Plan is present, code status is documented, or surrogate decision maker is listed in the patient?s medical record. [SATISFIES MIPS PERFORMANCE] If Yes, Stop Here [] The patient?s Advance Care plan is not present because: (select) [MIPS PERFORMANCE EXCEPTION/EXCLUSION] [] I confirmed today that the patient does not wish or was not able to name a surrogate decision maker or provide an Advance Care Plan. [] Hospice care is currently being provided or has been provided this calendar year [] I did NOT confirm today the presence of an Advance Care Plan or surrogate decision maker documented within the patient's medical record. [DOES NOT SATISFY MIPS PERFORMANCE] #130 - Documentation of Current Medications in the Medical Record Clinician documentation instruction: use macro the first time you see a patient. [] I have utilized all available immediate resources to obtain, update, or review the patient?s current medications. [SATISFIES MIPS PERFORMANCE] If Yes, Stop Here [] The patient is not eligible for medication reconciliation; the patient is in an emergent medical situation where delaying treatment would jeopardize the patient?s health. [MIPS PERFORMANCE EXCEPTION/EXCLUSION] [] I did NOT confirm, update or review the patient's current list of medications today. [DOES NOT SATISFY MIPS PERFORMANCE] MIPS - CL Central Venous Catheter Placement Measure: #76 ? Prevention of Central Venous Catheter (CVC) ? Related Bloodstream Infection Clinician documentation instruction: use macro every time you place a central line. [] All elements of Maximal Sterile Barrier Technique, including hand hygiene, skin prep, and sterile ultrasound technique (if used) were followed. [SATISFIES MIPS PERFORMANCE] If Yes, Stop Here [] If ?No?, the medical reason all elements were NOT used for medical reason [] (ex. emergent condition). [] Maximal Sterile Barrier Technique was not followed, no reason provided [DOES NOT SATISFY MIPS PERFORMANCE] MIPS - DC Heart Failure Measures: #5 - Heart Failure (HF): Angiotensin-Converting Enzyme (CRISTAL) Inhibitor or Angiotensin Receptor Marita (ARB) Therapy for Left Ventricular Systolic Dysfunction (LVSD) and #8 - Heart Failure (HF): Beta-Marita Therapy for Left Ventricular Systolic Dysfunction (LVSD) Clinician documentation instruction: use macro at every CHF discharge. [] The patient has current or prior documentation of left ventricular ejection fraction (LVEF) less than 40%, or moderate or severely depressed left ventricular systolic function. Answer both: [SATISFIES MIPS PERFORMANCE] [] The patient was prescribed or already taking an Angiotensin-Converting Enzyme (CRISTAL) Inhibitor, or Angiotensin Receptor Marita (ARB). [] The patient was prescribed or already taking a beta-marita. If Yes to Both, Stop Here [] Patient not prescribed/taking: [MIPS PERFORMANCE EXCEPTION/EXCLUSION] [] CRISTAL or ARB for medical/patient/system reason(s) including [] (ex. allerg y, intolerance, contraindication) [] Beta-marita for medical/patient/system reason(s) including [] (ex. allergy, intolerance, contraindication) [] Patient not prescribed/taking: [DOES NOT SATISFY MIPS PERFORMANCE] [] CRISTAL or ARB, no reason given [] Beta-marita, no reason given
[2020-08-25 09:09] VITALS: BP 121/80; PULSE 113; RESP 20; TEMP 36.9; O2SAT 96
--- NOTE | 2020-08-25 09:10 | OT.IP.EVAL ---
Current Diagnoses Benign lipomatous neoplasm of other sites (08/24/20) Spinal stenosis, lumbar region with neurogenic claudication (08/24/20) Arthrodesis status (08/24/20) Surgery Performed Operation Date: 08/24/20 07:45 Actual Procedures p L4-5 TLIF,L5-S1 HWR, L4-S1 PSF with instrumentation - Katt Hatch MD Past Medical History (Last Reviewed 08/25/20 @ 08:14 by [place] Domingo PA-C) Arthritis Chronic low back pain Dandruff Depression Difficult airway for intubation Dizziness Easy bruisability Former smoker Ganglion cyst Headache History of HPV infection HTN (hypertension) Hypothyroid LBBB (left bundle branch block) (~07/2018) Migraines Mononeuritis Neuropathy Sciatica Spinal stenosis Tachycardia Surgical History (Last Reviewed 08/25/20 @ 08:14 by [place] Domingo PA-C) H/O lumbar discectomy History of surgery (~2003) History of tubal ligation Hx of discectomy (~1998) Hx of thyroidectomy (~2008) Hx of tonsillectomy S/P cervical spinal fusion (11/21/18) Occupational Therapy Inpatient Evaluation/Re-Eval M1 PT/OT-IP Prior Functional Status Start: 08/25/20 09:19 Freq: NEEDED Status: Active Protocol: Document 08/25/20 08:28 [facility] (Rec: 08/25/20 09:37 [facility] [id number]) Medical Review Prior Functional Status Medical History Reviewed Yes Communication Able to make needs known Mobility and Gait Pt states she is modified independent with use of SPC Activities of Daily Living and IADL's Independent with ADL's with exception of occasional assist provided by spouse to don shoes and socks. Prior Functional Level (Other details) Pt had lumbar surgery in March 2019 and ACDF earlier the same year. Social History Household Members spouse Living Arrangements Mobile home Number of Floors (Floors) One Floor Number of Stairs To Enter/Railing? 3 CINDA with narrow bilateral rails Home Environment Standard Height Toilet,Tub/ Shower Home Equipment Front Wheel Walker,Straight Cane,Manager Benefit Additional Social History Comment Pt lives in an RV with her spouse but she will discharge to her mother's house which is described in this note. Pt's mother will be with her to provide all assist for ~2 weeks. M2 OT-IP Current Condition Start: 08/25/20 09:19 Freq: Status: Active Protocol: Document 08/25/20 08:28 [facility] (Rec: 08/25/20 09:37 [facility] [id number]) Occupational Therapy Current Condition Current Condition Evaluation Date 08/25/20 Treatment Diagnosis s/p L4-5 TLIF, L5-S1 HWR L4-S1 PSF with instrumentation Diagnosis Onset Date 08/24/20 Post Operative Precautions Lumbar Precautions Log Roll,No Twisting,Limit Bending,Lifting Restriction of 10 lbs,Gait Belt above Incisional Area M3 OT- IP Subjective and Pain Start: 08/25/20 09:19 Freq: Status: Active Protocol: Document 08/25/20 08:28 [facility] (Rec: 08/25/20 09:37 [facility] [id number]) OT- Subjective Occupational Therapy Visit Type Type Initial Evaluation Visit Start Time 08:28 Visit Stop Time 09:10 Total Visit Minutes 42 Occupational Therapy Visit Comments Patient Comments Pt agreed to get up for OT eval and wanting to shower but concerned not suppose to shower. Clarified with LAINE Domingo okay to shower with dressing on , but to make sure not to get the dressing saturated. Pt's mom in the room. Patient/Caregiver Goals TO go home. OT Pain Assessment Pain When Pain Assessed At Rest Pain Present Pain Present Pain Reported Location Back Intensity 7 Scale Used Numeric (0 - 10) M4 OT- IP ADL's Start: 08/25/20 09:19 Freq: Status: Active Protocol: Document 08/25/20 08:28 [facility] (Rec: 08/25/20 09:37 [facility] [id number]) OT ILA-Llok-Hygustg General Evaluation Self-Feeding Ability Independent OT ADL-Grooming General Evaluation Grooming Ability Standby Assistance OT ADL-Oral Care General Eval Oral Care Ability Standby Assistance Comments Oral Care Comments Educated to spit into a cup to best follow her back precautions. OT ADL-Dressing General Eval Upper Body Dressing Ability Standby Assistance Lower Body Dressing Ability Moderate Assistance Areas Needing Assistance Socks,Shoes Comments OT Dressing Comments Pt educated and issued LB dressing equipment in order to increased ease and safety for LB dressing needs. OT ADL-Toileting General Evaluation Toileting Ability Moderate Assistance Areas Needing Assistance Perform Perineal Hygiene Comments OT Toileting Comments Pt not able to reach and suggested either get assist or obtain toilet paper aid. OT ADL-Bathing Bathing Type Bathing Type Shower General Evaluation Bathing Ability Moderate Assistance Areas Needing Assistance Wash/Dry Back,Wash/Dry Perineal Area,Wash/Dry Lower Extremities Devices Bathing Equipment Shower Chair with Arms Comments OT Bathing Comments Pt states usually gets to the bottom of the tub. Told pt what Los JANG stated, not to get the dressing saturated . Therefore best to use shower chair/stool for showering. M5 OT- IP IADL's Start: 08/25/20 09:19 Freq: Status: Active Protocol: Document 08/25/20 08:28 [facility] (Rec: 08/25/20 09:37 [facility] [id number]) OT-Instrumental Activities of Daily Living Home Safety Awareness Awareness of Need for Assistance at Home Good Awareness Medication Management Medication Management Comments Pt's to stay with her mother and will be getting assist for all needs. Money Management Money Management Comments Pt's to stay with her mother and will be assist for all needs. Meal Preparation Meal Preparation Comments Pt's to stay with her mother and will be getting assist for all needs. Seat Covers Trimmer Seat Covers Trimmer Comments Pt's to stay with her mother and will be getting assist for all needs. M6 OT- IP Functional Cognition Start: 08/25/20 09:19 Freq: Status: Active Protocol: Document 08/25/20 08:28 [facility] (Rec: 08/25/20 09:37 [facility] [id number]) Cognitive Factors Limiting Selfcare Function Cognitive Ability Level of Alertness Alert Patient Orientation Name,Age,Birthday,Month,Date, Year,Day of Week,Place, Situation Attention Span Ability Capable of Focused Attention, Capable of Sustained Attention Ability to Follow Commands Able to Follow One Step Commands Memory Description No Deficits Noted Safety Awareness Decreased Ability to Apply Precautions,Underestimates Need for Assistance Problem Solving Ability Needs Assist to Identify Solutions Cognitive Comments Cognitive Assessment Comments VC for safety awareness. Pt wanting to stand to doff her socks and brief and stressed best to sit for LB dressing needs due to decreased dynamic balance. OT- Vision and Hearing OT- Hearing Assessment OT- Hearing Assessment WFL M7 OT- IP Mobility and Balance Start: 08/25/20 09:19 Freq: Status: Active Protocol: Document 08/25/20 08:28 [facility] (Rec: 08/25/20 09:37 [facility] [id number]) OT- Bed Mobility Assessment Supine to Sit Supine to Sit Assist Standby Assistance Sit to Supine Sit to Supine Assist Standby Assistance OT-Transfer Assessment Sit to and From Stand Sit to and from Stand Contact Guard Assistance, Minimal Assistance Transfers Transfer Ability Contact Guard Assistance, Minimal Assistance Technique Transfer Destination Bed,Chair,Shower Stall,Toilet Transfer Technique Stand Step Pivot Devices Transfer Assistive Devices Gait Belt,Front Wheeled Walker Comments Mobility Comments Pt heavy use of BUE to help to stand. VC to use the FWW as at times pt wanting to take steps without it and is unsteady. OT- Gait Assessment Comments Gait Ability Comments SBA with FWW for level surfaces, CGA/DONNIE for uneven surfaces. OT- Balance Assessment Sitting Balance and Reactions Static Sitting Balance Ability Normal Dynamic Sitting Balance Ability Good Standing Balance and Reactions Static Standing Balance Ability Fair M8 OT- IP Objective Assessments Start: 08/25/20 09:19 Freq: Status: Active Protocol: Document 08/25/20 08:28 [facility] (Rec: 08/25/20 09:37 [facility] [id number]) OT-Muscle Tone Assessment Muscle Tone WNL Yes M9 OT- IP Assessment and Plan Start: 08/25/20 09:19 Freq: Status: Active Protocol: Document 08/25/20 08:28 [facility] (Rec: 08/25/20 09:37 [facility] [id number]) OT Summary Assessment and Plan Potential Rehabilitation Potential Good Analytic Complexity at Evaluation Low Summary OT Impairments Pain,Functional Cognition, Functional Mobility,Dressing, Toileting,Bathing,Toilet Transfers,Shower Transfers, Activity Tolerance Progress Towards Goals Slow Progress due to Pain Assessment Summary Pt low complexity and main barriers are pain , steps and needing vc to follow back precautions for ADl and functional mobility needs. Pt 's mother to assist pt for all needs as pt will be going to live with her mother initially . Stressed to pt and her mother that it will be important to communicate well with each other. Pt issued LB dressing equipment. Goals Grooming Goal Independent Dressing Goal Independent Toileting Goal Independent Bathing Goal Independent Toilet Transfer Goal Independent Shower Transfer Goal Independent Patient/Caregiver Education Goal Demonstrate Post-Op Precautions Days to Meet Goals 5 Frequency of Treatment Frequency Of Treatment Once a Day Treatment Plan OT Treatment Plan ADL Training,Functional Cognition Training,Functional Mobility,Patient/Family Education,Discharge Planning Discharge Recommendations OT Discharge Recommendations Home with Assistance Home Equipment Needs shower chair Transportation Needs at Discharge Private Vehicle
[2020-08-25] MEDS: CALCIUM CARBONATE 500 MG TAB PO (09:25)
[2020-08-25] MEDS: POTASSIUM CHLORIDE 20 MEQ TAB PO (09:26)
[2020-08-25] MEDS: DOCUSATE 100 MG CAPSULE PO (09:27)
[2020-08-25 09:42] VITALS: BP 121/80; PULSE 113
[2020-08-25] MEDS: carvediloL 3.125 MG TABLET PO (09:42)
[2020-08-25] MEDS: OXYCODONE ER 10 MG TAB PO (09:43)
[2020-08-25] MEDS: VITAMIN B COMPLEX 1 CAPSULE 1 CAP PO (09:44)
--- NOTE | 2020-08-25 09:44 | PT.IPTN ---
Current Diagnoses Benign lipomatous neoplasm of other sites (08/24/20) Spinal stenosis, lumbar region with neurogenic claudication (08/24/20) Arthrodesis status (08/24/20) Surgery Performed Operation Date: 08/24/20 07:45 Actual Procedures p L4-5 TLIF,L5-S1 HWR, L4-S1 PSF with instrumentation - Katt Hatch MD Physical Therapy Treatment Note M2 PT-IP Current Condition Start: 08/24/20 15:46 Freq: NEEDED Status: Active Protocol: Document 08/24/20 16:20 AW (Rec: 08/24/20 16:40 AW [id number]) Physical Therapy Current Condition Current Condition Evaluation Date 08/24/20 Treatment Diagnosis L4-5 TLIF, L4-S1 PSF; difficulty in walking Onset Date 08/24/20 Precautions Lumbar Precautions Log Roll,No Twisting,Limit Bending,Lifting Restriction of 10 lbs,Gait Belt above Incisional Area M3 PT-IP Subjective Start: 08/24/20 15:46 Freq: NEEDED Status: Active Protocol: Document 08/25/20 09:44 AW (Rec: 08/25/20 09:56 AW [id number]) Subjective Physical Therapy Visit Type Type Treatment Note Visit Start Time 09:27 Visit Stop Time 09:44 Total Visit Minutes 17 Notes Pt's mother was present throughout evaluation. Her mother assisted after her last surgery. Physical Therapy Visit Comments Patient Comments Pt just finished showering with OT and requests pain meds to work with PT. RN dispensed as PT session began. I'm not strong or steady enough to use the cane yet. Therapy Pain Assessment Pain When Pain Assessed During Mobility Pain Present Pain Present Pain Reported Location Back Intensity 8 Scale Used 8/10 reported but pt in NAD Pain Management Techniques Apply Cold,Re-positioning, Timing of Activity with Medications M4 PT-IP Mobility and Gait Start: 08/24/20 15:46 Freq: NEEDED Status: Active Protocol: Document 08/25/20 09:44 AW (Rec: 08/25/20 09:56 AW [id number]) PT-Bed Mobility Assessment Rolling Type of Rolling Log Rolling Level of Assist Standby Assistance Sit to Supine Sit to Supine Standby Assistance PT-Transfer Assessment Sit to and From Stand Sit to and from Stand Standby Assistance,Use of Upper Extremities Equipment Transfer Assistive Device Gait Belt,Front Wheeled Walker Orthotic/Prosthetic Devices or Brace: No Transfers Transfer Destination Bed Transfer Technique Stand Step Pivot Transfer Ability Level of Assist Contact Guard Assistance, Minimal Assistance Comments Mobility Comments Pt was sitting EOB as PT arrived. RN administered pain meds and pt agreed to mobilize . She stood from the bed SBA and used FWW to ambulate in the halls. She completed stair assessment and returned to the room with FWW SBA. On return to the room, she requested to go back to bed, completing sit to supine with log roll SBA and good attention to precautions. Pt was left with her mother in the room, call light in reach. Gait Assessment Gait Gait Assistance Required: Standby Assistance Distance (Feet) 150 Able to Maintain Weight Bearing Status Yes During Gait Assistive Devices Assistive Device Gait Belt,Front Wheeled Walker Orthotic/Prosthetic Devices or Brace: No Gait Deviations General Gait Pattern Antalgic,Decreased Stride Length,Decreased Feet Clearance,Flexed Trunk Factors Limiting Gait Function Factors Limiting Gait Function Decreased Activity Tolerance, Decreased Sensation,Decreased Strength,Limited Range of Motion,Pain Comments Gait Comments Pt required occasional cues for trunk extension to avoid excessive bending but ambulated safely with FWW. Stair Climbing Assessment Evaluation Level of Assist On Stairs Standby Assistance Devices Stair Climbing Assistive Devices Left Railing,Right Railing Technique/Endurance Stair Climbing Direction Ascend and Descend Stair Climbing Technique Step to Step Number of Steps Climbed 3 Stair Climbing Set # Repetitions (reps) 1 Comments Stair Climbing Comments Cues for sequencing step-to pattern with pt able to follow through and return demonstrate. PT-Balance Assessment Sitting Balance and Reactions Static Sitting Balance Ability Good Dynamic Sitting Balance Ability Good Standing Balance and Reactions Static Standing Balance Ability Good Dynamic Standing Balance Ability Fair Device Used FWW M5 PT-IP Objective Assessments Start: 08/24/20 15:46 Freq: NEEDED Status: Active Protocol: Document 08/24/20 16:20 AW (Rec: 08/24/20 16:40 AW [id number]) Orientation Orientation/Cognition Level of Alertness Alert Orientation Name,Day of Week,Place, Situation Language Function Ability No Deficits Noted Safety Awareness Understands Safety Issues Gross Range of Motion Lower Extremity ROM Assessment Within Functional Limits Strength Lower Extremity Strength Assessment Bilaterally Impaired Hip 4-/5 Knee 4/5 Sensation Assessment Sensation Gross Sensation Right LE Impaired,Left LE Impaired Light Touch Impaired Proprioception (Position) Impaired Sensation Description Numbness Comments Sensation Comments Chronic numbness reported in bilateral feet Muscle Tone Muscle Tone WNL Yes M6 PT-IP Treatment Start: 08/24/20 15:46 Freq: NEEDED Status: Active Protocol: Document 08/25/20 09:44 AW (Rec: 08/25/20 09:56 AW [id number]) Physical Therapy Treatment Education Education Provided Precautions,Safety Other Treatments Other Treatment Performed Reviewed precautions with pt able to recall all three. M7 PT-IP Assessment and Plan Start: 08/24/20 15:46 Freq: NEEDED Status: Active Protocol: Document 08/25/20 09:44 AW (Rec: 08/25/20 09:56 AW [id number]) PT Summary Assessment and Plan Summary Impairments Pain,ROM,Strength,Balance, Sensation,Bed Mobility, Transfers,Gait,Activity Tolerance Progress Towards Goals Progressing Toward Goals,Safe For Discharge Assessment Summary Deb improved her mobility with FWW. She requried occasional cues to avoid bending/twisting but demonstrates overall good awareness of precautions. She cleared stairs. She has her mother to assist at home. Pt may discharge when medically stable. Goals Bed Mobility Goal Independent Transfer Goal Independent,Front Wheeled Walker Gait Goal Independent,Front Wheel Walker Gait Distance 150 Other Goals - up/down 3 steps with narrow bilateral rails mod IND - improve transfers and ambulation to SBA with SPC Days to Meet Goals 2 Frequency of Treatment Frequency Of Treatment Twice a Day Treatment Plan Physical Therapy Treatment Plan Bed Mobility Training,Transfer Training,Gait Training, Therapeutic Exercise,Balance Retraining,Post Op Education, Discharge Planning,Hot or Cold Pack,Neuromuscular Re-ed Precautions Lumbar Precautions Log Roll,No Twisting,Limit Bending,Lifting Restriction of 10 lbs,Gait Belt above Incisional Area Recommendations To Nursing Amount of Assist Needed Standby Assistance Discharge Recommendations PT Discharge Recommendations Home with Assistance, Outpatient PT Transportation Needs at Discharge Private Vehicle
[2020-08-25 10:32] VITALS: BP 120/81
[2020-08-25] MEDS: LEVOTHYROXINE 75 MCG TABLET PO (10:32)
[2020-08-25] MEDS: LOSARTAN 50 MG TABLET PO (10:32)
[2020-08-25 11:20] VITALS: BP 107/55; PULSE 113; RESP 22; TEMP 36.8; O2SAT 96
--- NOTE | 2020-08-25 12:04 | PC.NURSE ---
Patient A&Ox4, VSS, afebrile. Moving all extremities well, getting out of bed. Moralez ying'd this a.m and she is able to void multiple times in bathroom using FWW. Dressing to low mid back changed, lauren clean dry and intact x2 incisions. No bleeding,drainage or swelling noted. Tolerated breakfast well. +BS x4. LS clear throughout. Reports baseline numbness and tingling to B arms and B legs. Medicated for pain per request 8/10 pain with PRN 10mg oxycodone. Upon reassment she reported her pain level a 6. MD at bedside clearing patient for discharge. Discharge medications, instructions and follow up appointments reviewed with patient and mother at bedside. Patient verbalized understanding and was escorted to private vehicle by API DEVELOPER, with mother and all of her belongings and prescriptions.
--- NOTE | 2020-08-25 16:14 | CM.DANOTE ---
DCP ASSESSMENT: Patient is a pleasant 49 year-old female who was admitted to hospital post removal of L5-S1 hardware, L-4-L5 posterolateral and posterior interbody fusion, L4-S-1 PSF instrumentation. PCP is Brad [place]. Primary Payer is [facility] and self-pay. GEOPHYSICS TEACHER Student met with patient at bedside and her mother Anabella Thao. Patient is alert and oriented. Educated patient on role of social work in relation to D/C planning. Patient lives at home with spouse and has been independent with ADL?s including driving. Prior to procedure she ambulated with a cane but, plans on utilizing a FWW post D/C. She reports she has all adaptive and DME equipment at [facility] where she will go to recover for the next two weeks. Her and mother expressed being comfortable with D/C this date and will provide transportation at time of D/C. Patient confirmed she has two follow-up appointments scheduled with Dr. Hatch 08 SEP 2020 and 08 OCT 2020. PLAN: Patient has D/C summary in chart for today. SHIRIN Cortes MSW Student Discharge Planning/Care Management Advanced directive, confirm from FAMILY Start: 08/24/20 15:35 Freq: Q24H Status: Discharge Protocol: Document 08/24/20 15:44 KMD (Rec: 08/24/20 15:44 KMD [id number]) Advance Directive, confirm on record Time 15:44 Person contacted Patinet Copy received No CM Discharge Assessment Start: 08/25/20 10:25 Freq: Status: Discharge Protocol: Document 08/25/20 10:25 [place] (Rec: 08/25/20 10:32 AL [id number]) Discharge Planning Assessment Assigned Sewage Treatment Plant Operator SHIRIN Brooks Student Contact Information Anabella Thao, Mother Advance Directives? Yes Advance Directives on File No History Provided By Patient,Parents,Medical Record Has Patient been admitted in last 30 No days? Prior Living Arrangements Mobile home Household Members spouse Type of transporation used prior to Drives own vehicle admit Independent with ADL's Yes Is patient alert and oriented? Yes DME Already Rented / Owned Bath Bench,FWW / Walker,Cane Comment Pateint reported uses cane at baseline but, currently using FWW Barriers to Discharge No Transportation Arrangement Mother will transport patient at time of D/C Whiteboard Updated in Patient Room with Yes name and ext. # of Sewage Treatment Plant Operator Review Status In Process
== END 2020-08-25 11:47 | disposition home or self-care (01) | DRG 454 ==
PROVIDERS: Admitting Provider Orthopaedic Surgery Orthopaedic Surgery of the Spine; PCP Family Medicine; Referring Provider Orthopaedic Surgery Orthopaedic Surgery of the Spine; Visit Provider Orthopaedic Surgery Orthopaedic Surgery of the Spine
PROC: 0SG00AJ Fusion of Lumbar Vertebral Joint with Interbody Fusion Device, Posterior Approach, Anterior Column, Open Approach (ICD-10-PCS; principal; 2020-08-24 07:45)
DX: M48.062 Spinal stenosis, lumbar region with neurogenic claudication (principal); M96.0 Pseudarthrosis after fusion or arthrodesis; D17.79 Benign lipomatous neoplasm of other sites; I44.7 Left bundle-branch block, unspecified; E03.9 Hypothyroidism, unspecified; I10 Essential (primary) hypertension; E66.9 Obesity, unspecified; K21.9 Gastro-esophageal reflux disease without esophagitis; E78.5 Hyperlipidemia, unspecified; M96.1 Postlaminectomy syndrome, not elsewhere classified; Z87.891 Personal history of nicotine dependence; Z20.822 Contact with and (suspected) exposure to COVID-19; Z68.36 Body mass index [BMI] 36.0-36.9, adult
CPT/HCPCS: 36415; 72100; 76000; 82962; 85014; 85018; 87635; 97116; 97161; 97165; 97535; C1776; C9290; J0330; J0690; J1100; J1170; J2250; J2405; J2704; J2765; J3010; J3410